=== PATIENT | male | born 1990 | race American Indian/Alaskan Native ===

== ENCOUNTER 2017-04-13 23:17 | Emergency (ER) | payer OTHER ==
--- NOTE | 2017-04-14 00:23 | XRay Report ---
FINAL REPORT PROCEDURE: XR FOOT 3 RT TECHNIQUE: RIGHT foot radiographs, AP, lateral, and oblique views. CPT 52437 HISTORY: pt complains of pain to right toe COMPARISON: No prior studies are available for comparison. FINDINGS: Fracture (s) and/or Dislocation(s): None . Alignment: Normal . Joint space(s): Normal . Soft tissues: Normal . Bone mineralization: Normal . Foreign bodies: None . Calcaneal spurring: None . IMPRESSION: There is no evidence of an acute fracture or dislocation..
[2017-04-14] MEDS ORDERED: MOTRIN PO ONE (03:56)
--- NOTE | 2017-04-14 03:57 | Emergency Department Report ---
ED Lower Extremity HPI - General Chief Complaint: Extremity Injury, Lower Stated Complaint: RT FOOT INGROWN TOENAIL Time Seen by Provider: 04/14/17 03:52 Source: patient Mode of arrival: Ambulatory Limitations: No Limitations - History of Present Illness Initial Comments: 27-year-old male with past medical history none presents with complaint of several months of right great toe pain. Patient denies any fevers chills no pus drainage. States that the edge of his toenail has become slightly red over the last 3 weeks. States that his great toenail has an abnormal shape. Denies any direct trauma to toenail or foot. 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 States he was taking Tylenol with minimal relief pain. Onset/Timin -: week(s) Injury: Toes: Right (right great toenail) Severity: mild Severity scale (0 -10): 4 Associated Symptoms: ambulatory - Related Data Previous Rx's Medication Instructions Recorded Last Taken Type Ibuprofen [Motrin] 600 mg PO Q8H PRN #30 tablet 04/14/17 Unknown Rx Sulfamethoxazole/Trimethoprim 1 each PO BID #14 tablet 04/14/17 Unknown Rx [Bactrim DS TAB] Allergies Allergy/AdvReac Type Severity Reaction Status Date / Time No Known Allergies Allergy Unverified 09/10/14 21:50 ED Review of Systems ROS: Stated complaint: RT FOOT INGROWN TOENAIL Other details as noted in HPI Constitutional: denies: chills, fever Eyes: denies: eye pain, eye discharge, vision change ENT: denies: ear pain, throat pain Respiratory: denies: cough, shortness of breath, wheezing Cardiovascular: denies: chest pain, palpitations Endocrine: no symptoms reported Gastrointestinal: denies: abdominal pain, nausea, diarrhea Genitourinary: denies: urgency, dysuria Musculoskeletal: as per HPI (chronic pain and right toe for several months slightly worse over the last 3 weeks as per patient). denies: back pain, joint swelling, arthralgia Skin: denies: rash, lesions Neurological: denies: headache, weakness, paresthesias Psychiatric: denies: anxiety, depression Hematological/Lymphatic: denies: easy bleeding, easy bruising ED Past Medical Hx - Past Medical History Previous Medical History?: No - Surgical History Past Surgical History?: No - Social History Smoking Status: Never Smoker Substance Use Type: None - Medications Home Medications: Home Medications Medication Instructions Recorded Confirmed Last Taken Type Ibuprofen [Motrin] 600 mg PO Q8H PRN #30 tablet 04/14/17 Unknown Rx Sulfamethoxazole/Trimethoprim 1 each PO BID #14 tablet 04/14/17 Unknown Rx [Bactrim DS TAB] ED Physical Exam - General Limitations: No Limitations General appearance: alert, in no apparent distress - Head Head exam: Present: atraumatic, normocephalic - Eye Eye exam: Present: normal appearance, PERRL, EOMI - ENT ENT exam: Present: mucous membranes moist - Neck Neck exam: Present: normal inspection - Respiratory Respiratory exam: Present: normal lung sounds bilaterally. Absent: respiratory distress - Cardiovascular Cardiovascular Exam: Present: regular rate, normal rhythm. Absent: systolic murmur, diastolic murmur, rubs, gallop - GI/Abdominal GI/Abdominal exam: Present: soft, normal bowel sounds - Rectal Rectal exam: Present: deferred - Extremities Exam Extremities exam: Present: normal inspection - Expanded Lower Extremity Exam Right Hip exam: Present: normal inspection, full ROM Upper Leg exam: Present: normal inspection, full ROM Knee exam: Present: normal inspection, full ROM Lower Leg exam: Present: normal inspection, full ROM Ankle exam: Present: normal inspection, full ROM Foot/Toe exam: Present: normal inspection, full ROM, tenderness (some mild reproducible tenderness on medial nail edge great toenail. No evidence of paronychia no fluctuance no overt cellulitis) Neuro vascular tendon exam: Present: no vascular compromise (distal pulses dorsalis pedis posterior tibial are intact) Gait: Positive: observed and normal 1 - Some pain and intrusion of toenail into skin here - Back Exam Back exam: Present: normal inspection - Neurological Exam Neurological exam: Present: alert, oriented X3, CN II-XII intact, normal gait - Psychiatric Psychiatric exam: Present: normal affect, normal mood - Skin Skin exam: Present: warm, dry, intact, normal color. Absent: rash ED Course Vital Signs 04/13/17 04/14/17 23:43 04:08 Temperature 98.8 F Pulse Rate 82 77 Respiratory 22 18 Rate Blood Pressure 143/87 Blood Pressure 123/85 [Right] O2 Sat by Pulse 97 98 Oximetry ED Lower Extremity MDM - Medical Decision Making A/P: Right great toe ingrown toenail 1-does not appear overtly infected. 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 X-ray unremarkable 2-warm water soaks to foot 3-Motrin 600 when necessary 4- I provided patient information for [facility] with Dr. Armstrong to follow-up to have ingrown toenail removed on outpatient basis Critical care attestation.: If time is entered above; I have spent that time in minutes in the direct care of this critically ill patient, excluding procedure time. ED Disposition Clinical Impression: Ingrown left big toenail Disposition: TO HOME OR SELFCARE Is pt being admited?: No Does the pt Need Aspirin: No Condition: Stable Instructions: Ingrown Nail (ED) Prescriptions: Ibuprofen [Motrin] 600 mg PO Q8H PRN #30 tablet PRN Reason: Pain Sulfamethoxazole/Trimethoprim [Bactrim DS TAB] 1 each PO BID #14 tablet Referrals: LYNNETTE ARMSTRONG DPM [Staff Physician] - 3-5 Days Forms: Work/School Release Form(ED) Time of Disposition: 03:56
[2017-04-14 04:09] VITALS: BP 123/85
== END 2017-04-14 04:08 | disposition home or self-care (01) ==
LOC: ED 23:17
DX: L60.0 Ingrowing nail (principal)

== ENCOUNTER 2019-12-05 19:09 | Emergency (ER) | payer SELFPAY ==
--- NOTE | 2019-12-05 19:48 | Event Note ---
ED Screening Note ED Screening Note: lightheadedness dizziness vomiting This initial assessment/diagnostic orders/clinical plan/treatment(s) is/are subject to change based on patients health status, clinical progression and re- assessment by fellow clinical providers in the ED. Further treatment and workup at subsequent clinical providers discretion. Patient/guardian urged not to elope from the ED as their condition may be serious if not clinically assessed and managed. Initial orders include: labs
[2019-12-05 20:18] LABS: Hematocrit 42.8 % (35.5-45.6); Mean Corpuscular HGB Conc 33 % (32-34); Mean Corpuscular Volume 81 fl (84-94); Platelet Count 336 K/mm3 (140-440); Red Blood Count 5.31 M/mm3 (3.65-5.03); Red Cell Distribution Width 14.5 % (13.2-15.2)
[2019-12-05 20:32] LABS: Alanine Aminotransferase 36 units/L (7-56); Albumin 4.2 g/dL (3.9-5); BUN/Creatinine Ratio 11; Blood Urea Nitrogen 11 mg/dL (9-20); Calcium 9.5 mg/dL (8.4-10.2); Hemolysis Index 6
[2019-12-05 20:50] LABS: RBC Morphology Normal; Total Cells Counted 100
[2019-12-05] MEDS ORDERED: MECLIZINE 25 MG TAB PO ONE (21:09)
--- NOTE | 2019-12-05 21:12 | Emergency Department Report ---
HPI - General Chief Complaint: Dizziness Time Seen by Provider: 12/05/19 20:54 - HPI HPI: Room 40 The patient is a 29-year-old male present with a chief complaint of dizziness. Patient states his symptoms began 12/02/2019 when he began to feel dizzy after awakening. Patient states times he feels as though the room is moving and when he walks he sometimes felt himself stumbling. Patient developed nausea vomiting yesterday. Patient denies any preceding trauma or history of fever. Patient states he developed ringing in his left ear yesterday. ED Past Medical Hx - Past Medical History Previous Medical History?: Yes Additional medical history: Morbid Obesity - Surgical History Past Surgical History?: No - Family History Family history: no significant - Social History Smoking Status: Never Smoker Substance Use Type: None (Denies illicit drug use), Alcohol (Rarely) - Medications Home Medications: Home Medications Medication Instructions Recorded Confirmed Last Taken Type Ibuprofen [Motrin] 600 mg PO Q8H PRN #30 tablet 04/14/17 Unknown Rx Sulfamethoxazole/Trimethoprim 1 each PO BID #14 tablet 04/14/17 Unknown Rx [Bactrim DS TAB] Meclizine [Antivert] 25 mg PO TID PRN #20 tablet 12/05/19 Unknown Rx ED Review of Systems ROS: Stated complaint: DIZZY/LIGHT HEADED Other details as noted in HPI Constitutional: denies: fever Eyes: denies: eye pain ENT: other (Ringing in left ear) Respiratory: no symptoms reported Cardiovascular: denies: chest pain Endocrine: no symptoms reported Gastrointestinal: nausea, vomiting Genitourinary: denies: dysuria Musculoskeletal: denies: back pain Neurological: vertigo Physical Exam - Physical Exam Vital Signs: Vital Signs 12/05/19 19:34 Temperature 98.6 F Pulse Rate 89 Respiratory 20 Rate Blood Pressure 174/94 O2 Sat by Pulse 98 Oximetry Physical Exam: GENERAL: The patient is well-developed well-nourished male sitting on stretcher not appear to be in acute distress. [] HEENT: Normocephalic. Atraumatic. Extraocular motions are intact. Patient has moist mucous membranes. No nystagmus noted. NECK: Supple. No carotid bruits CHEST/LUNGS: Clear to auscultation. There is no respiratory distress noted. HEART/CARDIOVASCULAR: Regular. There is no tachycardia. There is no gallop rub or murmur. ABDOMEN: Abdomen is soft, nontender. Patient has normal bowel sounds. There is no abdominal distention. SKIN: There is no rash. There is no edema. There is no diaphoresis. NEURO: The patient is awake, alert, and oriented. The patient is cooperative. The patient has no focal neurologic deficits. The patient has normal speech. Cranial nerves II through XII grossly intact, no drift. No dysmetria noted with [id number] bilaterally MUSCULOSKELETAL: There is no evidence of acute injury. ED Course Vital Signs 12/05/19 19:34 Temperature 98.6 F Pulse Rate 89 Respiratory 20 Rate Blood Pressure 174/94 O2 Sat by Pulse 98 Oximetry ED Medical Decision Making - Lab Data Result diagrams: 12/05/19 19:52 12/05/19 19:52 Laboratory Tests 12/05/19 12/05/19 19:52 19:52 WBC 8.7 RBC 5.31 H Hgb 14.0 Hct 42.8 MCV 81 L MCH 26 L MCHC 33 RDW 14.5 Plt Count 336 Baso % (Auto) Parts Cataloguer Add Manual Diff Complete Total Counted 100 Seg Neuts % (Manual) 67.0 Band Neutrophils % 0 Lymphocytes % (Manual) 14.0 Reactive Lymphs % (Man) 0 Monocytes % (Manual) 13.0 H Eosinophils % (Manual) 3.0 Basophils % (Manual) 3.0 H Metamyelocytes % 0 Myelocytes % 0 Promyelocytes % 0 Blast Cells % 0 Nucleated RBC % Not Reportable Seg Neutrophils # Man 5.8 Band Neutrophils # 0.0 Lymphocytes # (Manual) 1.2 Abs React Lymphs (Man) 0.0 Monocytes # (Manual) 1.1 H Eosinophils # (Manual) 0.3 Basophils # (Manual) 0.3 H Metamyelocytes # 0.0 Myelocytes # 0.0 Promyelocytes # 0.0 Blast Cells # 0.0 WBC Morphology Not Reportable Hypersegmented Neuts Not Reportable Hyposegmented Neuts Not Reportable Hypogranular Neuts Not Reportable Smudge Cells Not Reportable Toxic Granulation Not Reportable Toxic Vacuolation Not Reportable Dohle Bodies Not Reportable Pelger-Huet Anomaly Not Reportable Rosa Rods Not Reportable Platelet Estimate Not Reportable Clumped Platelets Not Reportable Plt Clumps, EDTA Not Reportable Large Platelets Not Reportable Giant Platelets Not Reportable Platelet Satelliting Not Reportable Plt Morphology Comment Not Reportable RBC Morphology Normal Dimorphic RBCs Not Reportable Polychromasia Not Reportable Hypochromasia Not Reportable Poikilocytosis Not Reportable Anisocytosis Not Reportable Microcytosis Not Reportable Macrocytosis Not Reportable Spherocytes Not Reportable Pappenheimer Bodies Not Reportable Sickle Cells Not Reportable Target Cells Not Reportable Tear Drop Cells Not Reportable Ovalocytes Not Reportable Helmet Cells Not Reportable Fernandez-Manson Bodies Not Reportable [place]arton Rings Not Reportable [place] Cells Not Reportable Bite Cells Not Reportable Crenated Cell Not Reportable Elliptocytes Not Reportable Acanthocytes (Spur) Not Reportable Rouleaux Not Reportable Hemoglobin C Crystals Not Reportable Schistocytes Not Reportable Malaria parasites Not Reportable Jared Bodies Not Reportable Hem Pathologist Commnt No Sodium 136 L Potassium 3.8 Chloride 100.2 Carbon Dioxide 20 L Anion Gap 20 BUN 11 Creatinine 1.0 Estimated GFR > 60 BUN/Creatinine Ratio 11 Glucose 111 H Calcium 9.5 Total Bilirubin < 0.20 AST 24 ALT 36 Alkaline Phosphatase 82 Total Protein 8.4 H Albumin 4.2 Albumin/Globulin Ratio 1.0 - Radiology Data Radiology results: report reviewed (CT head), image reviewed (CT head) Findings [facility] [address] [place] [address] XRay Report Signed Patient: ALTON TOBIAS MR#: [id number] 185 : 10/10/1961 Acct:[id number] Age/Sex: 58 / M ADM Date: 12/05/19 Loc: ED Attending Dr: Ordering Physician: Renee Garcia MD Date of Service: 12/05/19 Procedure(s): XR knee 3V LT Accession Number(s): [id number] cc: Renee Garcia MD Fluoro Time In Minutes: Left knee 3 views INDICATION: Left knee pain following injury IMPRESSION: No fracture or subluxation of the left knee is identified. No knee effusion. Signer Name: Hossein Tiwari MD Signed: 12/05/2019 10:09 PM Workstation Name: [id number] Transcribed By: BC Dictated By: Hossein Tiwari MD Electronically Authenticated By: Hossein Tiwari MD Signed Date/Time: 12/05/192208 DD/ 06 TD/TT: - Differential Diagnosis Vertigo Critical care attestation.: If time is entered above; I have spent that time in minutes in the direct care of this critically ill patient, excluding procedure time. ED Disposition Clinical Impression: Vertigo Disposition: DC-01 TO HOME OR SELFCARE Is pt being admited?: No Does the pt Need Aspirin: No Condition: Stable Instructions: Vertigo (ED) Additional Instructions: Return to the emergency department should you develop worsening symptoms, inability to tolerate food or liquids, high fever or any other concerns Prescriptions: Meclizine [Antivert] 25 mg PO TID PRN #20 tablet PRN Reason: Vertigo Referrals: CONCEPCION GARNICA MD [Staff Physician] - [facility] (Dr. Garnica is a primary physician. Please follow-up with him to be established as a patient for further evaluation of your blood pressure) JODIE HURLEY MD [Staff Physician] - 2-3 Days (Dr Hurley is a neurologist. Please follow-up with him for further evaluation) Time of Disposition: 22:55
--- NOTE | 2019-12-05 22:29 | Cat Scan Report ---
Examination: CT of the head without contrast Clinical information: Vertigo. Comparison: None Technical: Multiple axial CT images of the head were obtained without intravenous contrast. Sagittal and coronal reformats were obtained. All CTs at this facility utilize dose reduction techniques inc luding automated exposure control, iterative reconstruction and weight based dosing when appropriate to reduce patient radiation dose to as low as reasonable achievable. Findings: There is no CT evidence of acute intracranial hemorrhage or large territorial infarct. The ventricular system is normal in size. Evaluation of bony structures demonstrates no evidence of acute bony abnormality. There is partial mu cosal opacification of the ethmoid air cells and bilateral maxillary sinuses which may be related to mucous retention cysts or polyps. The mastoid air cells are clear. Impression: 1. No CT evidence of acute intracranial process. Signer Name: Sondra Groves MD Signed: 12/05/2019 10:25 PM Workstation Name: [id number]
[2019-12-05 23:20] VITALS: BP 124/74
== END 2019-12-05 23:11 | disposition home or self-care (01) ==
LOC: ED 19:09
DX: R42 Dizziness and giddiness (principal); E66.01 Morbid (severe) obesity due to excess calories
CPT/HCPCS: 36415; 70450; 80053; 85007; 85025; 99284

== ENCOUNTER 2021-06-15 09:52 | Emergency (ER) | payer OTHER ==
[2021-06-15 10:12] VITALS: BP 135/79
[2021-06-15] MEDS ORDERED: IBUPROFEN 800 MG TAB PO ONE (10:27)
--- NOTE | 2021-06-15 10:30 | Emergency Department Report ---
ED Chest Pain HPI - General Chief Complaint: Chest Pain Stated Complaint: CHEST PAINS PUI?: No Time Seen by Provider: 06/15/21 10:15 Source: patient Mode of arrival: Ambulatory Limitations: No Limitations - History of Present Illness Initial Comments: Patient presents with a 2-week history of chest pain. 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 He started to have some substernal chest pain. He went to his regular physician and he was told it was a pulled muscle. Patient was told to use Tylenol and ice. He has been having ongoing pain intermittently. Last night, he had ongoing pain as well. He had been told to come to the emergency department if he had ongoing pain. Patient describes the pain as a substernal pain in the lower chest area. It does not radiate or migrate. It is worse with supine position, right lateral and left lateral decubitus positions, and deep inspiration. He describes the pain as a poking pain. It does not radiate or migrate. Is not exertional. It is not radiating into the abdomen or upper chest. He has no other associated symptoms with this pain. Again, there is no shortness of breath, diaphoresis, or nausea. Patient states that he did not know what to do and came in. He also reports that he has had some blood in his stool over the last day. This is been bright red blood. He noticed it when he wiped. When he is further questioned, he states that it may have happened several days ago. He does have an appointment to see his physician, but has not as of yet. He is not anticoagulated. There is no family history of bleeding diathesis. He has no bleeding from other sites. Severity scale (0 -10): 8 - Related Data Previous Rx's Medication Instructions Recorded Last Taken Type Sulfamethoxazole/Trimethoprim 1 each PO BID #14 tablet 04/14/17 Unknown Rx [Bactrim DS TAB] Meclizine [Antivert] 25 mg PO TID PRN #20 tablet 12/05/19 Unknown Rx Ibuprofen [Motrin 600 MG tab] 600 mg PO Q8H PRN #30 tablet 06/15/21 Unknown Rx Allergies Allergy/AdvReac Type Severity Reaction Status Date / Time No Known Allergies Allergy Verified 12/05/19 19:31 Heart Score - HEART Score History: Slightly suspicious EKG: Normal Age: < 45 Risk factors: No known risk factors Troponin: < normal limit (Troponin was not actually done as this was no risk for ACS.) HEART Score: 0 - EKG Read Time Time EKG Completed: 10:05 EKG Read Time: 10:10 ED Review of Systems ROS: Stated complaint: CHEST PAINS Other details as noted in HPI Comment: All other systems reviewed and negative Constitutional: denies: chills, fever Eyes: denies: eye discharge ENT: denies: throat pain Respiratory: denies: cough Cardiovascular: as per HPI Endocrine: denies: excessive sweating Gastrointestinal: denies: abdominal pain Genitourinary: denies: dysuria, hematuria Musculoskeletal: denies: back pain Skin: denies: rash Neurological: denies: weakness Hematological/Lymphatic: denies: easy bruising ED Past Medical Hx - Past Medical History Previous Medical History?: No Additional medical history: Morbid Obesity - Social History Smoking Status: Never Smoker Substance Use Type: None (Denies illicit drug use), Alcohol (Rarely) - Medications Home Medications: Home Medications Medication Instructions Recorded Confirmed Last Taken Type Sulfamethoxazole/Trimethoprim 1 each PO BID #14 tablet 04/14/17 Unknown Rx [Bactrim DS TAB] Meclizine [Antivert] 25 mg PO TID PRN #20 tablet 12/05/19 Unknown Rx Ibuprofen [Motrin 600 MG tab] 600 mg PO Q8H PRN #30 tablet 06/15/21 Unknown Rx ED Physical Exam - General Limitations: No Limitations (BMI noted.) General appearance: alert, in no apparent distress - Head Head exam: Present: atraumatic, normocephalic, normal inspection - Eye Eye exam: Present: normal appearance, EOMI. Absent: scleral icterus - ENT ENT exam: Present: normal orophraynx, mucous membranes moist - Neck Neck exam: Present: full ROM. Absent: meningismus - Respiratory Respiratory exam: Present: normal lung sounds bilaterally, chest wall tenderness (Lower portion of the sternum and xiphoid process). Absent: respiratory d istress - Cardiovascular Cardiovascular Exam: Present: regular rate, normal rhythm - GI/Abdominal GI/Abdominal exam: Present: soft. Absent: distended, tenderness - Rectal Rectal exam: Present: hemorrhoids (External and partially thrombosed) - Extremities Exam Extremities exam: Present: full ROM. Absent: tenderness, pedal edema - Back Exam Back exam: Absent: CVA tenderness (R), CVA tenderness (L) - Neurological Exam Neurological exam: Present: alert, oriented X3, normal gait - Psychiatric Psychiatric exam: Present: normal mood - Skin Skin exam: Present: warm, dry ED Course Vital Signs 06/15/21 09:54 Temperature 98.8 F Pulse Rate 77 Respiratory 18 Rate Blood Pressure 135/79 [Left] O2 Sat by Pulse 97 Oximetry - Reevaluation(s) Reevaluation #1: 06/15/21 10:29 EKG was noted. Chest x-ray Motrin ordered. Reevaluation #2: 06/15/21 11:15 Chest x-ray was reviewed. There is no evidence of pneumonia or pneumothorax. Patient was subsequently discharged. ED Medical Decision Making - EKG Data -: EKG Interpreted by Me EKG shows normal: sinus rhythm, axis, intervals, QRS complexes, ST-T waves Rate: normal - EKG Data Interpretation: no acute changes, normal EKG - Radiology Data Radiology results: image reviewed interpreted by me: Chest x-ray reviewed by me shows no evidence of pneumonia or pneumothorax. Mediastinum is of normal size and caliber. Heart size is normal. There is no obvious bony or soft tissue abnormality. There is no appreciable cause for the patient's pain. - Medical Decision Making Patient presented with chest pain. Etiology for this is unclear. He was initially told it was a pulled muscle. Now he has reproducible chest wall tenderness with palpation over the costochondral joints. This could certainly represent costochondritis. He does not have EKG changes or symptoms suggestive of ACS or STEMI. Patient does not have pneumonia or pneumothorax radiographically. There is no wide mediastinum or pulse deficit there was suggest aortic dissection. He has no recent travel, pleuritic pain, or hypoxia to suggest pulmonary embolism. He certainly does not have any abdominal tenderness that would suggest referred pain from hepatitis, pancreatitis, ulcers, or AAA. He was treated symptomatically and referred for outpatient evaluation and follow-up. Critical Care Time: No Critical care attestation.: If time is entered above; I have spent that time in minutes in the direct care of this critically ill patient, excluding procedure time. ED Disposition Clinical Impression: External hemorrhoid, bleeding, Chest wall pain Disposition: HOME / SELF CARE / HOMELESS Is pt being admited?: No Does the pt Need Aspirin: No Condition: Stable Instructions: Nonspecific Chest Pain, Adult, Hemorrhoids, [id number] Additional Instructions: Continue apply ice to your chest. Alternate with heat. Use ibuprofen for pain. Limit lifting. Return for problems. Follow-up with your regular physician. Use sits baths at home. Have a high-fiber diet. Prescriptions: Ibuprofen [Motrin 600 MG tab] 600 mg PO Q8H PRN #30 tablet PRN Reason: Pain Forms: Work/School Release Form(ED)
--- NOTE | 2021-06-15 11:40 | XRay Report ---
CHEST 2 VIEWS INDICATION: chest pain. COMPARISON: None FINDINGS: Support devices: None. Heart: Within normal limits. Lungs/pleura: No acute air space or interstitial disease. No pneumothorax. Additional findings: None. IMPRESSION: No acute findings. Signer Name: Levi Conte Jr, MD Signed: 06/15/2021 11:36 AM Workstation Name: [id number]
--- NOTE | 2021-06-17 10:12 | Electrocardiograph Report ---
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
== END 2021-06-15 11:39 | disposition home or self-care (01) ==
LOC: ED 09:52
DX: K64.4 Residual hemorrhoidal skin tags (principal); R07.89 Other chest pain; Z79.82 Long term (current) use of aspirin; Z79.899 Other long term (current) drug therapy
CPT/HCPCS: 71046; 93005; 99283